=== PATIENT | male | born 1940 | race Caucasian/White ===

== ENCOUNTER 2022-10-27 05:31 | Inpatient (IN) | payer BC, MEDICAID ==
[2022-10-21 14:38] LABS: CLARITY,URINE CLEAR (Clear); COLOR,URINE YELLOW (Yellow); GLUCOSE, URINE NEGATIVE (Neg); KETONES,URINE NEGATIVE (Neg); LEUKOCYTE ESTERASE ,URINE NEGATIVE (Neg); NITRITES, URINE NEGATIVE (Neg); OCCULT BLOOD,URINE MODERATE (Neg); PH,URINE 5.5 (4.8-8.0); PROTEIN,URINE 30 mg/dl (Neg); UROBILINOGEN,URINE 0.2 E.U/dL (0.2-1.0)
[2022-10-21 14:39] LABS: BASOPHILS # (AUTO) 0.1 X10'3 (0-0.2); BASOPHILS % (AUTO) 0.8 % (0-1); EOSINOPHILS # (AUTO) 0.2 X10'3 (0-0.9); EOSINOPHILS % (AUTO) 3.1 % (0-6); LYMPHOCYTES # (AUTO) 1.4 X10'3 (1.1-4.8); LYMPHOCYTES % (AUTO) 19.3 % (21-51); MEAN CORPUSCULAR HEMOGLOBIN 31.7 PG (27.0-31.0); MEAN CORPUSCULAR HGB CONC 34.3 g/dL (33.0-36.5); MEAN CORPUSCULAR VOLUME 92.4 FL (78-98); MEAN PLATELET VOLUME 7.4 FL (7.4-10.4); MONOCYTES # (AUTO) 0.6 X10'3 (0-0.9); MONOCYTES % (AUTO) 8.8 % (2-12); NEUTROPHILS # (AUTO) 4.9 X10'3 (1.8-7.7); PRE OP HEMATOCRIT 36.8 % (42.0-52.0); PRE OP HEMOGLOBIN 12.6 g/dL (14.0-17.9); PRE OP PLATELET COUNT 271 X10'3 (140-440); RED BLOOD COUNT 3.98 X10'6 (4.70-6.10); RED CELL DISTRIBUTION WIDTH 13.5 % (11.5-14.5)
[2022-10-21 14:42] LABS: UA COLLECTION TYPE CLN CATCH MIDSTREAM
[2022-10-21 14:43] LABS: BACTERIA,URINE NONE SEEN /HPF (Neg); MUCUS STRANDS FEW /LPF (Neg); SQUAMOUS EPITHELIAL CELL,UR FEW /LPF (FEW); WBC,URINE 0-4 /HPF (0-4)
[2022-10-21 15:05] LABS: PRE OP PROTIME 10.9 SECONDS (9.0-12.0)
[2022-10-21 15:08] LABS: ALBUMIN 3.9 G/DL (3.4-5.0); ALBUMIN/GLOBULIN RATIO 1.2 (1.1-1.5); ALKALINE PHOSPHATASE 83 IU/L (46-116); BLOOD UREA NITROGEN 18 MG/DL (7-18); BUN/CREATININE RATIO 16.8 (10.0-20.0); CALCIUM 9.4 MG/DL (8.5-10.1); CHLORIDE 101 MMOL/L (99-107); CREATININE 1.07 MG/DL (0.60-1.10); PRE OP ALT 21 U/L (30-65); PRE OP ANION GAP 13 (8-16); PRE OP AST 25 U/L (10-37); PRE OP BILIRUB, TOTAL 0.5 MG/DL (0.0-1.0); PRE OP GLUCOSE 140 MG/DL (70-104); PRE OP SODIUM 140 MMOL/L (135-145); TOTAL CARBON DIOXIDE 26.3 MMOL/L (24-32); TOTAL PROTEIN 7.2 G/DL (6.4-8.2); eGFR 66 ML/MIN
[2022-10-27] VITALS (25 sets, daily range): BP systolic 90–156; BP diastolic 59–95; PULSE 70–96; RESP 16–21; TEMP 97.6–98.6; O2SAT 92–98
[~2022-10-27] VITALS: Ht 177.8 cm; Wt 113.7 kg
[~2022-10-27 05:31] MED LIST: ALLO100T PO; AMLO5TAB16 PO; ASPI-1397 PO; ATOR40TA72 PO; CHLO50TA PO; DOCUMENT DATE & TIME OF BETA-BLOCKER PO ONE; FLO0.4C PO; LEVO75TA7 PO; LISI40TA13 PO; LOTE5DRO RIGHTEYE; METF-1203 PO; METO-384 PO; POTA-366 PO; SILD100T PO; TIMO5DRO15 RIGHTEYE; TRAM50TA2 PO; TRIA16.911 BOTHNARES; cefazolin 2gm/D5W 100mL 100 ML IV ONE; famotidine 20mg tablet PO ONE; ringers solution, lacted 1,000 ML IV SCH
[2022-10-27] MEDS ORDERED: tranexamic acid inj. 1,000 MG in normal saline 100ml IV soln 90 ML IV ONE (06:35)
[2022-10-27] MEDS ORDERED: vancomycin 1,000mg inj ONE (06:41)
[2022-10-27] MEDS ORDERED: midazolam 1 mg/ML 2ml injection ONE (06:53)
[2022-10-27] MEDS ORDERED: propofol inj 20 ML IV ONE (06:53)
[2022-10-27] MEDS ORDERED: LIDOcaine 2% (20mg/ml) 5ml vial ONE (06:53)
[2022-10-27] MEDS ORDERED: fentaNYL/PF 50MCG/1 ML 2ML syringe ONE ×2 (06:53→09:50)
[2022-10-27] MEDS ORDERED: diphenhydrAMINE 25mg capsule PO PRN (06:55)
[2022-10-27] MEDS ORDERED: acetaminophen 325mg tablet PO PRN (06:55)
[2022-10-27] MEDS ORDERED: HYDROcodone/acetaminophen 10/325mg tab PO PRN (06:55)
[2022-10-27] MEDS ORDERED: ondansetron/PF 4mg/2ml inj ONE (06:55)
[2022-10-27] MEDS ORDERED: ROPIVAcaine 0.5% (5mg/ml) 30ml vial ONE (06:55)
[2022-10-27] MEDS ORDERED: naloxone 0.4 mg/ml inj IV PRN (06:55)
[2022-10-27] MEDS ORDERED: dexamethasone sod phosphate 4mg/ml inj. ONE (06:55)
[2022-10-27] MEDS ORDERED: ondansetron/PF 4mg/2ml inj IV PRN ×2 (06:55→08:00)
[2022-10-27] MEDS ORDERED: sevoflurane 250ml liquid IH ONE (07:03)
[2022-10-27] MEDS ORDERED: ePHEDrine 50MG/ML INJ. ONE (07:28)
[2022-10-27] MEDS ORDERED: fentaNYL/PF 50MCG/1 ML 2ML syringe IV PRN ×2 (08:00)
[2022-10-27] MEDS ORDERED: morphine 4 MG/ML inj SYRINge IV PRN (08:00)
[2022-10-27] MEDS ORDERED: enalaprilat dihydrate 2.5mg/2ml vial IV PRN (08:00)
[2022-10-27] MEDS ORDERED: morphine 2 MG/ML inj. syringe IV PRN (08:00)
[2022-10-27] MEDS ORDERED: hydrALAZINE 20mg/ml inj. IV PRN (08:00)
[2022-10-27] MEDS ORDERED: ringers solution, lacted 1,000 ML IV SCH (08:00)
[2022-10-27] MEDS ORDERED: acetaminophen 1,000mg/100ml IV 100 ML IV ONE (08:27)
[2022-10-27] MEDS ORDERED: gelatin sponge, absorbable (Gelfoam 100) sponge TP ONE (09:10)
[2022-10-27] MEDS ORDERED: Thrombin (Bovine) 5,000 unit vial TP ONE ×2 (09:10→09:16)
[2022-10-27] MEDS ORDERED: gelatin sponge, absorbable (Gelfoam-100 compressed) sponge TP ONE (09:16)
[2022-10-27] MEDS ORDERED: cefazolin 2gm/D5W 100mL 100 ML IV SCH (10:00)
--- NOTE | 2022-10-27 10:12 | NUR ---
Received from OR via [facility]OS[facility] BED TO RR #6, accompanied by Anesthesiologist VIELKA and report given by Anesthesiolgist. 10L MASK WITH SPOO2 98%. VSS. PATIENT DOES NOT COMPAIN OF PAIN AT THIS TIME. LEFT ARM IN SLING WITH SHOULDER WRAP, ICE APPLIED, ISLAND DRESSING OVER SHOULDER CDI. LR RUNNING AT 100ML/HR. SCD ON, XRAY PRESENT TO TAKE POST OP PIC. WILL CONTINUE TO ASSESS.
--- NOTE | 2022-10-27 10:52 | NUR ---
VSS, PATIENT ON 2L NC WITH SPO2 94%. BG 149. PATIENT DOES NOT C/O PAIN AT THIS TIME. WILL CONTINUE TO ASSESS.
--- NOTE | 2022-10-27 12:02 | NUR ---
PATIENT HAS MET ALL CRITERIA FOR TRANSFER TO ROOM 4012B. VSS. DRESSING INTACT. BED LOW, CALL LIGHT PRESENT AND 2 RAILS UP. REPORT HAS BEEN CALLED. ALL QUESTIONS ANSWERED TO ACCEPTING RN. INFORMED RN PATIENT IS IN ROOM 4012B WITH ALL PERSONAL BELONGINGS INCLUDING BILAT HEARING AIDS WITH CHARGING CASE, GLASSES, HOME BIPAP ETC. FAMILY AT BEDSIDE.
[2022-10-27] MEDS: cefazolin 2gm/D5W 100mL 100 ML IV SCH ×3 (13:00→20:14)
[2022-10-27] MEDS: aspirin 325mg tablet PO SCH (13:20)
[2022-10-27] MEDS: potassium cl 20mEq in 1/2 NS 1,000 ML IV SCH (13:24)
[2022-10-27] MEDS: HYDROcodone/acetaminophen 10/325mg tab PO PRN ×2 (14:40→21:13)
--- NOTE | 2022-10-27 18:27 | NUR ---
Problems reprioritized. Patient report given, questions answered & plan of care reviewed with RYAN Tay.
--- NOTE | 2022-10-27 18:30 | NUR ---
Patient in room ORTHO 4012. I have received report from LARISA Stuart and had the opportunity to ask questions and assume patient care.
[2022-10-28 02:00] VITALS: BP 119/64; PULSE 75; RESP 17; TEMP 97.8; O2SAT 93
[2022-10-28] MEDS: potassium cl 20mEq in 1/2 NS 1,000 ML IV SCH ×2 (03:17→09:35)
[2022-10-28] MEDS: HYDROcodone/acetaminophen 10/325mg tab PO PRN ×4 (05:23→17:41)
[2022-10-28 06:00] VITALS: BP 127/78; PULSE 73; RESP 17; TEMP 97.5; O2SAT 93
--- NOTE | 2022-10-28 06:24 | NUR ---
Problems reprioritized. Patient report given, questions answered & plan of care reviewed with LARISA Stuart.
--- NOTE | 2022-10-28 06:39 | NUR ---
Patient in room ORTHO 4012. I have received report from RYAN Tay and had the opportunity to ask questions and assume patient care.
[2022-10-28 06:51] LABS: BASOPHILS % (AUTO) 0.1 % (0-1); EOSINOPHILS % (AUTO) 0 % (0-6); HEMATOCRIT 33.1 % (42.0-52.0); HEMOGLOBIN 11.3 g/dl (14.0-17.9); LYMPHOCYTES % (AUTO) 9.5 % (21-51); MEAN CORPUSCULAR HEMOGLOBIN 32.2 PG (27.0-31.0); MEAN CORPUSCULAR HGB CONC 34.3 g/dL (33.0-36.5); MEAN CORPUSCULAR VOLUME 93.7 FL (78-98); MONOCYTES # (AUTO) 0.8 X10'3 (0-0.9); MONOCYTES % (AUTO) 7.9 % (2-12); NEUTROPHILS # (AUTO) 8.3 X10'3 (1.8-7.7); NEUTROPHILS % (AUTO) 82.5 % (42-75); PLATELET COUNT 229 X10'3 (140-440); RED BLOOD COUNT 3.53 X10'6 (4.70-6.10); RED CELL DISTRIBUTION WIDTH 13.4 % (11.5-14.5); WHITE BLOOD COUNT 10.1 X10'3 (4.5-11.0)
[2022-10-28 06:57] LABS: ANION GAP 11 (8-16); CHLORIDE 100 MMOL/L (99-107); POTASSIUM 3.2 MMOL/L (3.5-5.1); SODIUM 136 MMOL/L (135-145); TOTAL CARBON DIOXIDE 25.2 MMOL/L (24-32)
[2022-10-28 07:00] VITALS: RESP 18; O2SAT 96
[2022-10-28] MEDS: aspirin 325mg tablet PO SCH (07:34)
--- NOTE | 2022-10-28 09:57 | NUR ---
Per EMR pt s/p reverse left TSA, currently pending discharge. Written protein education with ONS coupons and RD contact information mailed to patient's address found in EMR. Will remain available. Addendum: 10/28/22 at [address] Amended: Links added.
[2022-10-28] MEDS ORDERED: potassium Cl 20 mEq SR tablet PO STA (09:59)
[2022-10-28 10:00] VITALS: BP 135/73; PULSE 74; RESP 18; TEMP 97.4; O2SAT 96
[2022-10-28] MEDS ORDERED: non-formulary drug (Sildenafil Citrate* (Viagra*) 1 TAB) PO PRN (10:15)
[2022-10-28] MEDS ORDERED: TRIAMCINOLONE ACETONIDE BOTHNARES PRN (10:15)
--- NOTE | 2022-10-28 10:45 | NUR ---
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
--- NOTE | 2022-10-28 12:27 | NUR ---
LEAD TECHNOLOGIST [employer] documentation: I have reviewed and agree with all interventions, assessments performed and documented by Narciso Fernandez LVN.
[2022-10-28] MEDS ORDERED: potassium Cl 20 mEq SR tablet PO SCH (13:00)
[2022-10-28 17:41] VITALS: RESP 16
--- NOTE | 2022-10-28 17:57 | NUR ---
Pt stable for d/c. IV discontinued prior to d/c. aware of pt's k at 3.2. replacement given and okay to d/c pt. Pt signed all d/c paperwork. Assisted out of facility via wheelchair with the assistance of one staff member. Pt significant other in parking lot with private vehicle and pt left with significant other to go home.
[2022-10-28] MEDS ORDERED: allopurinol 100mg tablet PO SCH (20:00)
[2022-10-29] MEDS ORDERED: levoTHYROXINE 75mcg tablet PO SCH (07:00)
[2022-10-29] MEDS ORDERED: tamsulosin 0.4mg capsule PO SCH (08:00)
[2022-10-29] MEDS ORDERED: metFORMIN 500mg tablet PO SCH (08:00)
[2022-10-29] MEDS ORDERED: chlorthalidone 25mg tablet PO SCH (08:00)
[2022-10-29] MEDS ORDERED: metoprolol succinate 25mg (24-HOUR) SR. Tablet PO SCH (08:00)
[2022-10-29] MEDS ORDERED: lisinopril 20mg tablet PO SCH (08:00)
[2022-10-29] MEDS ORDERED: atorvastatin 20mg tablet PO SCH (08:00)
[2022-10-29] MEDS ORDERED: LOTEPREDNOL ETABONATE RIGHTEYE SCH (08:00)
[2022-10-29] MEDS ORDERED: TIMOLOL MALEATE 0.5% 10ml 1 APPLIC BOTTLE RIGHTEYE SCH (08:00)
[2022-10-29] MEDS ORDERED: amLODIPine 5mg tablet PO SCH (08:00)
== END 2022-10-28 17:45 | disposition home or self-care (01) | DRG 483 ==
LOC: PAS IN 05:31 → ORTHO 4S 12:05
PROVIDERS: ADMIT Specialist; ATTEND Specialist
PROC: 3E0T3BZ Introduction of Anesthetic Agent into Peripheral Nerves and Plexi, Percutaneous Approach (ICD-10-PCS; 2022-10-27)
PROC: 3E0T33Z Introduction of Anti-inflammatory into Peripheral Nerves and Plexi, Percutaneous Approach (ICD-10-PCS; 2022-10-27)
PROC: 0RRK00Z Replacement of Left Shoulder Joint with Reverse Ball and Socket Synthetic Substitute, Open Approach (ICD-10-PCS; principal; 2022-10-27 07:03)
PROC: 5A09357 Assistance with Respiratory Ventilation, Less than 24 Consecutive Hours, Continuous Positive Airway Pressure (ICD-10-PCS; 2022-10-28)
DX: M19.012 Primary osteoarthritis, left shoulder (principal); E03.9 Hypothyroidism, unspecified; E78.5 Hyperlipidemia, unspecified; G47.30 Sleep apnea, unspecified; I10 Essential (primary) hypertension; I25.2 Old myocardial infarction; Z91.013 Allergy to seafood
CPT/HCPCS: 36415; 71046; 73020; 73030; 76000; 80051; 80053; 81001; 82948; 84132; 85025; 85610; 85730; 86885; 86900; 86901; 87081; 97110; 97161; 97530; A4565; A4615; A4618; A6449; A6455; A7000; C1776; G0378; J0131; J0690; J1100; J2250; J2405; J2704; J2795; J3010; J3370; J3480; J3490; J7120